=== PATIENT | female | born 1935 | race Caucasian/White ===

== ENCOUNTER 2016-09-15 16:43 | Emergency (ER) | payer MEDICARE, OTHER ==
[~2016-09-15] VITALS: Ht 154.9 cm; Wt 42.0 kg
[2016-09-15 16:54] VITALS: BP 200/94; PULSE 55; RESP 20; TEMP 97.7; O2SAT 100
[2016-09-15] MEDS ORDERED: SODIUM CHLOR 0.9% 1000 ML INJ 1,000 ML IV SCH (17:01)
--- NOTE | 2016-09-15 17:07 | PD ---
HPI Chief Complaint: General Weakness Time Seen by Provider: 16:53 Travel History International Travel<30 days: No Contact w/Intl Traveler<30days: No Traveled to known affect area: No History of Present Illness HPI The patient is a 81-year-old female who presents to the emergency department via EMS for lethargy. According to EMS the patient was recently placed on hospice, unknown reasons according to EMS. EMS states that the hospice nurse called because the patient was more lethargic today. On arrival the patient is oriented 2/4, denies any current complaints. However, EMS states that the patient's heart rate was in the 30s prior to arrival and they administered atropine 0.25 mg intravenously. The patient denies any chest pain , shortness breath, nausea, vomiting, or abdominal pain. Patient denies any current headache. The patient does not know why she was placed on hospice. EMS states that the patient's blood sugar is 118 upon arrival. The patient does have a history of diabetes and is currently on metformin. PFSH Past Medical History Narrative Medical Diabetes, Parkinson's disease Past Surgical History Narrative Surgical Patient cannot recall Social History Tobacco Use: No Allergies-Medications (Allergen,Severity, Reaction): Coded Allergies: Penicillin (Verified Allergy, Severe, 02/19/03) Uncoded Allergies: MISCELLANEOUS (SEE TEXT) (Ingr Allergy) (Allergy, Severe, Y, 02/19/03) FOSAMAX PCN,FOSAMAX,CHOL. MEDS (Allergy, Unknown, 02/20/03) SHRIMP (Allergy, Unknown, 02/20/03) Reported Meds & Prescriptions Reported Meds & Active Scripts Active Reported [Benny Mejía] 1 Applic TOPICAL TID Pamplico 3 1200 mg (Pamplico-3 Fatty Acids) 1 Cap Cap 1,200 Mg PO BID Vitamin D-3 (Cholecalciferol) 1,000 Unit Tab 1,000 Units PO DAILY K-Tab (Potassium Chloride) 10 Meq Tab 10 Meq PO AC BREAKFAST Latanoprost Opth Drops (Latanoprost) 0.005% Drops 1 Drop EACH EYE HS Refrigerate until opened. Nature-Throid (Thyroid) 32.5 Mg Tab 32.5 Mg PO BID Metformin (Metformin HCl) 500 Mg Tab 500 Mg PO BIDPC With meals Alprazolam 0.5 Mg Tab 0.25-0.5 Mg PO Q4-6H PRN Sinemet (Carbidopa/Levodopa) 25-250 Mg Tab 0.5 Tab PO BID Sinemet (Carbidopa/Levodopa) 25-250 Mg Tab 1 Tab PO TID Review of Systems ROS Limitations: Poor Historian Except as stated in HPI: all other systems reviewed are Neg Cardiovascular: No: Chest Pain or Discomfort Respiratory: No: Shortness of Breath Gastrointestinal: No: Nausea, Vomiting, Abdominal Pain Musculoskeletal: No: Myalgias, Arthralgias Neurologic: No: Dizziness Physical Exam Narrative GENERAL: Awake, alert, pleasant 81-year-old female who appears her stated age and is in no acute respiratory distress. The patient was wearing glasses. SKIN: Focused skin assessment warm/dry. Superficial area of ecchymosis over the left proximal humerus and the right distal forearm. HEAD: Atraumatic. Normocephalic. EYES: Pupils equal and round. Pupils are 3 mm bilateral and reactive. ENT: No nasal bleeding or discharge. Upper dentures in place. NECK: Trachea midline. No JVD. CARDIOVASCULAR: Regular rate and rhythm. No murmur appreciated. Heart rate in the 50s. RESPIRATORY: No accessory muscle use. Clear to auscultation. Breath sounds equal bilaterally. GASTROINTESTINAL: Abdomen soft, non-tender, nondistended. Well-healed scar from the umbilicus to the suprapubic region midline, no rebound tenderness. MUSCULOSKELETAL: No obvious deformities. No clubbing. No cyanosis. No edema. Moves all 4 extremities. NEUROLOGICAL: Awake and alert. No obvious cranial nerve deficits. Motor grossly within normal limits. Normal speech. Follows directions. Oriented to person and year, does not know the current month or broker in charge. Back: No CVA tenderness. Mild scoliosis/kyphosis noted. PSYCHIATRIC: Appropriate mood and affect; insight and judgment normal. Data Data Last Documented VS Vital Signs Date Time Temp Pulse Resp B/P Pulse Ox O2 Delivery O2 Flow Rate FiO2 09/15/16 17:45 57 24 198/84 92 Nasal Cannula 4 09/15/16 16:54 97.7 Orders Electrocardiogram (09/15/16 17:01) Complete Blood Count With Diff (09/15/16 17:01) Comprehensive Metabolic Panel (09/15/16 17:01) Creatine Kinase (Cpk) (09/15/16 17:01) Troponin I (09/15/16 17:01) Thyroid Stimulating Hormone (09/15/16 17:01) Urinalysis - C+S If Indicated (09/15/16 17:01) Chest, Single Ap (09/15/16 17:01) Blood Glucose (09/15/16 17:01) Ecg Monitoring (09/15/16 17:01) Iv Access Insert/Monitor (09/15/16 17:01) Oximetry (09/15/16 17:01) Sodium Chloride 0.9% Flush (Ns Flush) (09/15/16 17:15) Sodium Chlor 0.9% 1000 Ml Inj (Ns 1000 M (09/15/16 17:01) Lactic Acid (09/15/16 17:01) Ct Brain W/O Iv Contrast(Rout) (09/15/16 ) Lorazepam Inj (Ativan Inj) (09/15/16 17:45) Urine Culture (09/15/16 18:25) Lorazepam Inj (Ativan Inj) (09/15/16 19:00) Labs Laboratory Tests Test 09/15/16 09/15/16 17:09 18:25 White Blood Count 5.1 TH/MM3 Red Blood Count 3.48 MIL/MM3 Hemoglobin 10.9 GM/DL Hematocrit 31.7 % Mean Corpuscular Volume 90.9 FL Mean Corpuscular Hemoglobin 31.3 PG Mean Corpuscular Hemoglobin 34.4 % Concent Red Cell Distribution Width 13.8 % Platelet Count 172 TH/MM3 Mean Platelet Volume 7.4 FL Neutrophils (%) (Auto) 56.6 % Lymphocytes (%) (Auto) 30.6 % Monocytes (%) (Auto) 7.7 % Eosinophils (%) (Auto) 4.8 % Basophils (%) (Auto) 0.3 % Neutrophils # (Auto) 2.9 TH/MM3 Lymphocytes # (Auto) 1.5 TH/MM3 Monocytes # (Auto) 0.4 TH/MM3 Eosinophils # (Auto) 0.2 TH/MM3 Basophils # (Auto) 0.0 TH/MM3 CBC Comment DIFF FINAL Differential Comment Sodium Level 141 MEQ/L Potassium Level 4.0 MEQ/L Chloride Level 107 MEQ/L Carbon Dioxide Level 25.2 MEQ/L Anion Gap 9 MEQ/L Blood Urea Nitrogen 20 MG/DL Creatinine 0.77 MG/DL Estimat Glomerular Filtration 72 ML/MIN Rate Random Glucose 103 MG/DL Lactic Acid Level 1.2 mmol/L Calcium Level 8.4 MG/DL Total Bilirubin 0.6 MG/DL Aspartate Amino Transf 19 U/L (AST/SGOT) Alanine Aminotransferase LESS THAN 6 U/L (ALT/SGPT) Alkaline Phosphatase 49 U/L Total Creatine Kinase 50 U/L Troponin I 0.02 NG/ML Total Protein 6.0 GM/DL Albumin 3.3 GM/DL Thyroid Stimulating Hormone 0.645 uIU/ML 3rd Gen Urine Color LIGHT-YELLOW Urine Turbidity CLEAR Urine pH 7.0 Urine Specific Strang 1.005 Urine Protein TRACE mg/dL Urine Glucose (UA) NEG mg/dL Urine Ketones NEG mg/dL Urine Occult Blood NEG Urine Nitrite NEG Urine Bilirubin NEG Urine Urobilinogen LESS THAN 2.0 MG/DL Urine Leukocyte Esterase NEG Urine WBC 2 /hpf Urine Bacteria RARE /hpf Microscopic Urinalysis Comment CATH-CULTURE IND MDM Medical Decision Making Medical Screen Exam Complete: Yes Emergency Medical Condition: Yes Medical Record Reviewed: Yes Interpretation(s) EKG reveals normal sinus rhythm with a rate of 62. Wavy baseline, however, there appeared to be P waves in the lateral leads. Interference may be secondary to patient's underlying Parkinson's disease. Last Impressions Chest X-Ray 09/15/16 1701 Signed Impressions: Service Date/Time: Thursday, September 15, 2016 17:03 - CONCLUSION: No acute disease. Jeffrey Stephen MD Head CT 09/15/16 0000 Signed Impressions: Service Date/Time: Thursday, September 15, 2016 17:59 - CONCLUSION: Moderate severity atrophy. No acute findings. Carson Purvis MD Laboratory Tests Test 09/15/16 09/15/16 17:09 18:25 White Blood Count 5.1 TH/MM3 Red Blood Count 3.48 MIL/MM3 Hemoglobin 10.9 GM/DL Hematocrit 31.7 % Mean Corpuscular Volume 90.9 FL Mean Corpuscular Hemoglobin 31.3 PG Mean Corpuscular Hemoglobin 34.4 % Concent Red Cell Distribution Width 13.8 % Platelet Count 172 TH/MM3 Mean Platelet Volume 7.4 FL Neutrophils (%) (Auto) 56.6 % Lymphocytes (%) (Auto) 30.6 % Monocytes (%) (Auto) 7.7 % Eosinophils (%) (Auto) 4.8 % Basophils (%) (Auto) 0.3 % Neutrophils # (Auto) 2.9 TH/MM3 Lymphocytes # (Auto) 1.5 TH/MM3 Monocytes # (Auto) 0.4 TH/MM3 Eosinophils # (Auto) 0.2 TH/MM3 Basophils # (Auto) 0.0 TH/MM3 CBC Comment DIFF FINAL Differential Comment Sodium Level 141 MEQ/L Potassium Level 4.0 MEQ/L Chloride Level 107 MEQ/L Carbon Dioxide Level 25.2 MEQ/L Anion Gap 9 MEQ/L Blood Urea Nitrogen 20 MG/DL Creatinine 0.77 MG/DL Estimat Glomerular Filtration 72 ML/MIN Rate Random Glucose 103 MG/DL Lactic Acid Level 1.2 mmol/L Calcium Level 8.4 MG/DL Total Bilirubin 0.6 MG/DL Aspartate Amino Transf 19 U/L (AST/SGOT) Alanine Aminotransferase LESS THAN 6 U/L (ALT/SGPT) Alkaline Phosphatase 49 U/L Total Creatine Kinase 50 U/L Troponin I 0.02 NG/ML Total Protein 6.0 GM/DL Albumin 3.3 GM/DL Thyroid Stimulating Hormone 0.645 uIU/ML 3rd Gen Urine Color LIGHT-YELLOW Urine Turbidity CLEAR Urine pH 7.0 Urine Specific Strang 1.005 Urine Protein TRACE mg/dL Urine Glucose (UA) NEG mg/dL Urine Ketones NEG mg/dL Urine Occult Blood NEG Urine Nitrite NEG Urine Bilirubin NEG Urine Urobilinogen LESS THAN 2.0 MG/DL Urine Leukocyte Esterase NEG Urine WBC 2 /hpf Urine Bacteria RARE /hpf Microscopic Urinalysis Comment CATH-CULTURE IND Differential Diagnosis Differential diagnosis includes hyponatremia, dehydration, UTI, heart block, medication side effect, sepsis, pneumonia, subdural hemorrhage. Narrative Course IV was established, labs are drawn and sent, and the patient was placed on cardiac telemetry monitoring and continuous pulse oximetry monitoring. EKG was ordered and interpreted. CT of the brain was obtained. Catheter UA was sent to lab. Nursing staff was notified and call the hospice nurse for further information. CT the brain is negative. Chest x-rays unremarkable. Laboratory evaluation is unremarkable. Lactic acid is within normal limits. Troponin is negative. UA is negative. The patient did have some anxiety while in the emergency department, initially was administered Ativan 0.5 g intravenously at 5 :47 PM. Patient is reevaluated at 6:50 PM, family members are requesting more anxiety medication, patient has been increasing Xanax recently secondary to increasing anxiety. The patient does live with the son, however, he is unsure if he is able to care for his mother at home. Therefore, hospice nurse was called, she evaluated the patient in the emergency department and the patient will go to the hospice care center. Diagnosis Primary Impression: Anxiety Additional Impression: Parkinsons disease Patient Instructions: General Instructions Additional Instructions: Medications as per hospice. Disposition: 70 TRANSFER TO OTHER FACILITY (patient will be transferred to hospice care center) Condition: Stable Ernie Spencer MD Sep 15, 2016 17:07
[2016-09-15] MEDS ORDERED: SODIUM CHLORIDE 0.9% FLUSH 10 ML FLUSH IVF PRN (17:15)
--- NOTE | 2016-09-15 17:30 | RADRPT ---
EXAM DATE/TIME: 09/15/2016 17:03 [facility] COMPARISON: No previous studies available for comparison. INDICATIONS : Bradycardia. MEDICAL HISTORY : Diabetes mellitus type II. Parkinson's SURGICAL HISTORY : Coronary artery stent. ENCOUNTER: Initial ACUITY: 1 day PAIN SCORE: 0/10 LOCATION: Bilateral chest FINDINGS: A single view of the chest demonstrates the lungs to be symmetrically aerated without evidence of mas s, infiltrate or effusion. The cardiomediastinal contours are unremarkable. Osseous structures are intact.CONCLUSION: No acute disease. Jeffrey Stephen MD on September 15, 2016 at 17:29 Board Certified Radiologist. This report was verified electronically.
[2016-09-15 17:32] VITALS: O2SAT 98
[2016-09-15 17:45] VITALS: BP 198/84; PULSE 57; RESP 24; O2SAT 92
[2016-09-15] MEDS ORDERED: LORazepam 2 MG/ML VIAL IV PUSH ONE ×2 (17:45→19:00)
[2016-09-15 17:52] LABS: AUTOMATED NEUTROPHIL # 2.9 TH/MM3 (1.8-7.7); BASOPHIL % 0.3 % (0.0-2.0); EOSINOPHIL # 0.2 TH/MM3 (0-0.4); EOSINOPHIL % 4.8 % (0.0-4.0); HEMATOCRIT 31.7 % (35.0-46.0); HEMO FLAGS DIFF FINAL; LYMPH % 30.6 % (9.0-44.0); LYMPHOCYTE # 1.5 TH/MM3 (1.0-4.8); MEAN CELL VOLUME 90.9 FL (80.0-100.0); MEAN CORPUSCULAR HEMOGLOBIN 31.3 PG (27.0-34.0); MEAN CORPUSCULAR HGB CONC 34.4 % (32.0-36.0); MONO % 7.7 % (0.0-8.0); NEUT % 56.6 % (16.0-70.0); PLATELET COUNT 172 TH/MM3 (150-450); RED BLOOD COUNT 3.48 MIL/MM3 (4.00-5.30); RED CELL DISTRIBUTION WIDTH 13.8 % (11.6-17.2); WHITE BLOOD COUNT 5.1 TH/MM3 (4.0-11.0)
[2016-09-15] MEDS ORDERED: [UNRECOGNIZED DRUG - CODE] PO ×2 (18:01→18:03)
[2016-09-15] MEDS ORDERED: ALPR0.5T3 PO (18:05)
[2016-09-15] MEDS ORDERED: METF500T PO (18:07)
[2016-09-15] MEDS ORDERED: NATU32.5 PO (18:07)
[2016-09-15] MEDS ORDERED: K-TA10TA PO (18:11)
[2016-09-15] MEDS ORDERED: OMEG12002 PO (18:11)
[2016-09-15] MEDS ORDERED: LATA0.002 EACH EYE (18:11)
[2016-09-15] MEDS ORDERED: VITA10003 PO (18:11)
--- NOTE | 2016-09-15 18:15 | RADRPT ---
EXAM DATE/TIME: 09/15/2016 17:59 [facility] COMPARISON: No previous studies available for comparison. INDICATIONS : Altered mental status. RADIATION DOSE: 29.21 CTDIvol (mGy) MEDICAL HISTORY : Unable to obtain. SURGICAL HISTORY : Unable to obtain. ENCOUNTER: Initial ACUITY: 1 day PAIN SCALE: 0/10 LOCATION: cranial TECHNIQUE: Multiple contiguous axial images were obtained of the head. Using automated exposure control and adj ustment of the mA and/or kV according to patient size, radiation dose was kept as low as reasonably a chievable to obtain optimal diagnostic quality images. FINDINGS: CEREBRUM: The ventricles, sulci, and basal cisterns are prominent characteristic of moderate severity central c ortical atrophy. There is also mild decreased attenuation in the supratentorial white matter suggest ing ischemic change.. No evidence of midline shift, mass lesion, hemorrhage or acute infarction. No extra-axial fluid collections are seen. POSTERIOR FOSSA: The cerebellum and brainstem are intact. The 4th ventricle is midline. The cerebellopontine angle i s unremarkable. EXTRACRANIAL: The visualized portion of the orbits is intact. SKULL: The calvaria is intact. No evidence of skull fracture. CONCLUSION: Moderate severity atrophy. No acute findings. Carson Purvis MD on September 15, 2016 at 18:12 Board Certified Radiologist. This report was verified electronically.
[2016-09-15 18:16] LABS: ANION GAP 9 MEQ/L (5-15); AST (GOT) 19 U/L (15-37); BICARBONATE 25.2 MEQ/L (21.0-32.0); BLOOD UREA NITROGEN 20 MG/DL (7-18); CHLORIDE 107 MEQ/L (98-107); GLOMERULAR FILTRATION RATE 72 ML/MIN (>89); SODIUM (NA) 141 MEQ/L (136-145)
[2016-09-15] MEDS ORDERED: [UNRECOGNIZED DRUG - OTHER] TOPICAL (18:17)
[2016-09-15 18:27] LABS: ALKALINE PHOSPHATASE 49 U/L (45-117); ALT (GPT) LESS THAN 6 U/L (10-53); TOTAL BILIRUBIN ADULT 0.6 MG/DL (0.2-1.0)
[2016-09-15 18:33] LABS: CREATINE KINASE 50 U/L (26-192)
[2016-09-15 18:39] LABS: BACTERIA, URINE RARE /hpf; BLOOD, URINE NEG (NEG); GLUCOSE,URINE NEG (NEG); KETONE, URINE NEG (NEG); NITRITE,URINE NEG (NEG); URINE COLOR LIGHT-YELLOW (YELLW/STRAW)
[2016-09-15 18:44] LABS: COMMENT (UR) CATH-CULTURE IND; CULTURE IF INDICATED CATH CULTURE IND
[2016-09-15] MEDS ORDERED: ALPRAZolam 0.5 MG TAB PO ONE (20:00)
== END 2016-09-15 22:21 | disposition short-term general hospital (02) ==
LOC: NEPA 16:43
DX: F41.9 Anxiety disorder, unspecified (principal); G20 Parkinson's disease; R00.1 Bradycardia, unspecified; E11.9 Type 2 diabetes mellitus without complications; Z79.84 Long term (current) use of oral hypoglycemic drugs
CPT/HCPCS: 70450; 71010; 80053; 81001; 82550; 83605; 84443; 84484; 85025; 87086; 96361; 96374; 96376; 99285; J2060; J7030